=== PATIENT | female | born 1970 | race African-American/Black ===

== ENCOUNTER → 2016-11-26 | Outpatient (CLI) | payer BC ==
[~2016-11-26] MED LIST: DUEXIS 800-26.1 EACH PO; NORVASC10 MG PO; PHENERGAN25 MG PO; TRAMADOL HCL50 M2 PO; TYLENOL #3 PO
--- NOTE | ~2016-11-26 | MY11 ---
[facility] A Service of [facility] RADIOLOGY TEXT RESULTS PATIENT: EVELIN RAMOS LOCATION: [facility] : 70 UNIT #: [id number] AGE: [address]: Alina Parisi MD SEX: F ORDER DR: [id number] [facility]. [place], [place] [address] [id number] O MR#: [id number] #: [id number] NAME: EVELIN RAMOS : 1970 SEX: F STUDY DATE/TIME: 11/26/2016 8:43 UNIT: [facility] ROOM: STUDY DESCRIPTION: MY Mammogram Screening Dig Corey Attending Physician: Alina Parisi M.D. Ordering Physician: Alina Parisi M.D. Primary Care Physician: Alina Parisi M.D. MEDICAL IMAGING REPORT This report is preliminary unless electronic signature is present EXAM Bilateral digital screening mammogram with CAD. HISTORY Routine screening. Family history of breast cancer in aunt. COMPARISON STUDIES 10/19/2015, 06/26/2014, 07/25/2013 TECHNIQUE MLO and CC digital views of each breast were obtained. The exam was reviewed with an FDA-approved CAD device. FINDINGS The breasts are dense. There are no masses or suspicious calcifications. There has been no change. IMPRESSION No change. No evidence of malignancy. Patients over the age of 40 are entered into a reminder system with target due date for the next mammogram. A result letter will also be sent to the patient. BIRADS: 2 Benign finding. Dictated by... Jones Madden M.D. THIS IS AN ELECTRONICALLY VERIFIED REPORT [facility] A Service [facility] RADIOLOGY TEXT RESULTS PATIENT: EVELIN RAMOS LOCATION: [facility] : [birth year] UNIT #: [id number] AGE: [address]: Alina Parisi MD SEX: F ORDER DR: Jones Madden M.D. at 11/26/2016 2:07 PM [place] TD: 11/26/2016 12:12 JOB #: [id number] MEDICAL IMAGING REPORT COPY
== END | disposition home or self-care (01) ==
LOC: CWCC 08:21
DX: Z12.31 Encounter for screening mammogram for malignant neoplasm of breast (principal); Z80.3 Family history of malignant neoplasm of breast
CPT/HCPCS: G0202